=== PATIENT | female | born 1945 | race Caucasian/White ===

== ENCOUNTER 2020-09-10 09:09 | Emergency (ER) | payer MEDICARE, OTHER ==
[~2020-09-10] VITALS: Ht 162.6 cm; Wt 93.0 kg
[~2020-09-10 09:09] MED LIST: LIDODERM1 EACH TOP
[2020-09-10] MEDS ORDERED: AMLODIPINE BESYL5 MG PO (09:25)
[2020-09-10] MEDS ORDERED: OMEPRAZOLE20 MG PO (09:26)
[2020-09-10] MEDS ORDERED: DIVALPROEX SOD500 M1 PO (09:26)
[2020-09-10] MEDS ORDERED: PENNSAID112 GM TOP (09:26)
[2020-09-10] MEDS ORDERED: LOSARTAN POTASS50 MG PO (09:26)
[2020-09-10] MEDS ORDERED: OXYBUTYNIN CHLO15 MG PO (09:26)
--- NOTE | 2020-09-11 00:46 | EKG ---
[facility] [address] [facility] [place], [place] [address] Signed Normal sinus rhythm Normal ECG No previous ECGs available Confirmed by LARISA LOMAX MD ([id number]) on 09/11/2020 12:46:18 AM Electronically Signed By: LARISA LOMAX MD 09/11/20 0046 PATIENT NAME: MITCH GUTIERREZ Electrocardiogram DATE OF : 43 PHYSICIAN: LARISA LOMAX MD REPORT #: [id number] REPORT IS CONFIDENTIAL AND NOT TO BE RELEASED WITHOUT AUTHORIZATION
== END 2020-09-10 13:55 | disposition home or self-care (01) ==
LOC: ED 09:09
DX: U07.1 COVID-19 (principal); I95.9 Hypotension, unspecified; I10 Essential (primary) hypertension; Z87.891 Personal history of nicotine dependence; Z79.899 Other long term (current) drug therapy
CPT/HCPCS: 71045; 80053; 81001; 84484; 85007; 85025; 93005; 93010; 99284-25; C9803; J7121; U0003

== ENCOUNTER 2020-12-24 10:40 | Emergency (ER) | payer MEDICARE, OTHER ==
[~2020-12-24] VITALS: Ht 162.6 cm; Wt 95.2 kg
[~2020-12-24 10:40] MED LIST changes: +AMLODIPINE BESYL5 MG PO; +CELEXA20 MG PO; +CEREFOLIN TABL1 EACH PO; +CLARITIN10 M2 PO; +DIVALPROEX SOD500 M1 PO; +FOSAMAX70 MG PO; +K-TAB ER20 MEQ PO; +LOSARTAN POTASS50 MG PO; +MAGNESIUM-VIT1 EAC1 PO; +OMEPRAZOLE20 MG PO; +ONDANSETRON ODT8 MG PO; +OSTEOBLOX CF C1 EACH PO; +OXYBUTYNIN CHLO15 MG PO; +PENNSAID112 GM TOP; +PENNSAID2 GM; +PEPCID40 MG PO; +STOOL SOFTENER1 EAC2 PO; +ZYPREXA2.5 MG PO
[2020-12-24] MEDS ORDERED: ROPINIROLE HC0.25 MG PO (11:15)
== END 2020-12-24 12:30 | disposition home or self-care (01) ==
LOC: ED 10:40
DX: I10 Essential (primary) hypertension (principal); K30 Functional dyspepsia; Z87.891 Personal history of nicotine dependence; Z88.8 Allergy status to other drugs, medicaments and biological substances; Z79.899 Other long term (current) drug therapy
CPT/HCPCS: 99283

== ENCOUNTER 2022-01-25 06:31 | Emergency (ER) | payer MEDICARE, OTHER ==
[~2022-01-25] VITALS: Ht 162.6 cm; Wt 95.2 kg
[~2022-01-25 06:31] MED LIST changes: +ROPINIROLE HC0.25 MG PO
== END 2022-01-25 09:44 | disposition home or self-care (01) ==
LOC: ED 06:31
DX: J10.1 Influenza due to other identified influenza virus with other respiratory manifestations (principal); I10 Essential (primary) hypertension; G20 Parkinson's disease; Z87.891 Personal history of nicotine dependence; Z79.899 Other long term (current) drug therapy; Z20.822 Contact with and (suspected) exposure to COVID-19
CPT/HCPCS: 36415; 71045; 80053; 83880; 85025; 87502; 94640; J2930; U0003

== ENCOUNTER 2022-03-24 05:40 | Day surgery (SDC) | payer MEDICARE, OTHER ==
[~2022-03-24] VITALS: Ht 162.6 cm; Wt 85.4 kg
--- NOTE | ~2022-03-24 | OR ---
[facility] [address] [place], [place] [address] Draft DATE OF OPERATION: 03/24/2022 SURGEON: Monae Machado MD PREOPERATIVE DIAGNOSIS: Positive Cologuard test, October 30, 2021. POSTOPERATIVE DIAGNOSES: 1. Polyps x2, cecum and right colon. 2. Profound diverticulosis. PROCEDURE: Total colonoscopy to cecum with cold snare polypectomy x1 and cold morcellation polypectomy x1. ANESTHESIA: Intravenous sedation propofol infusion, Carlton Klein CRNA INDICATIONS: This 76-year-old white woman is a patient of Dr. Bustamante. She moved to [place] from [place] about four years ago. She has undergone colonoscopy greater than 20 years ago. Due to her numerous comorbidities including Parkinson disease wheelchair confined and other issues including obesity. She underwent a Cologuard test. Cologuard test was positive. This was in October 2021. She is here now for colonoscopy. Understands the risks of bleeding, infection, and perforation. FINDINGS: The prep was adequate but not great. Numerous diverticula were seen in the sigmoid and throughout the colon generally speaking. She did have melanosis coli as well. Found with two polyps, one about 1 cm in the mid ascending colon, the other a small polyp of the cecum. Both were excised completely. Biopsies taken of the cecum to affirm melanosis coli also. PROCEDURE IN DETAIL: Patient was brought to the surgical endoscopy suite and placed in lateral decubitus position given intravenous sedation with propofol infusional technique. The patient's head was placed in the lateral decubitus position. Digital rectal examination was normal. An Olympus video colonoscope was passed in the rectum and manipulated into the sigmoid PATIENT NAME: MITCH GUTIERREZ OPERATIVE REPORT DATE OF : 43 REPORT #: [id number] PHYSICIAN: MONAE MACHADO MD PCP: JASMINE BUSTAMANTE MD REPORT IS CONFIDENTIAL AND NOT TO BE RELEASED WITHOUT AUTHORIZATION [facility] [address] [place], [place] [address] Draft which had profound diverticular changes. Passage of the scope was not particularly impeded by diverticula but she did have a redundant colon and given her underlying issues, a fair amount of straining. Deep sedation resulted in some desaturations and on that basis a less dense sedation protocol was required. Scope was ultimately manipulated to the cecum despite these factors. Irrigation was undertaken and melanosis coli was confirmed. Biopsy was taken of the cecum to affirm that histologically. A small polyp that was adenomatous was seen in the cecum was excised with cold morcellation technique. The scope was further withdrawn in the mid ascending colon, a somewhat sessile 1 cm polyp was noted, this was excised with cold snare technique. Specimen was passed for pathology as well. Further withdrawal of scope showed no evidence of other polyps, only diverticular changes. The rectum was normal on retroflexed view as well. The scope was removed. The patient taken to the recovery room in good condition. CONCLUDING DIAGNOSES: 1. Polyps x2 affirming positive Cologuard test. 2. Melanosis coli. 3. Profound diverticulosis. PLAN: I would recommend repeat colonoscopy in 5-7 years, sooner if clinically indicated. High-fiber diet would be recommended based on her diverticulosis. MD GOMEZ [place]/MODL /[id number] cc: Dr. Bustamante Copies: ~ PATIENT NAME: MITCH GUTIERREZ OPERATIVE REPORT DATE OF : 43 REPORT #: [id number] PHYSICIAN: MONAE MACHADO MD PCP: JASMINE BUSTAMANTE MD REPORT IS CONFIDENTIAL AND NOT TO BE RELEASED WITHOUT AUTHORIZATION
[~2022-03-24 05:40] MED LIST changes: +ADULT ASPIRIN R81 MG PO; +LIPITOR10 MG GT; +LIPITOR20 MG GT; +VITAMIN B-121000 MCG PO
[2022-03-24] MEDS ORDERED: BUSPIRONE HCL5 MG PO (06:27)
[2022-03-24] MEDS ORDERED: BIOTIN1 M1 PO (06:31)
--- NOTE | 2022-03-24 09:31 | NUR ---
03/24/22 0931 Tigist Flynn 0976 PATIENT ARRIVES TO PACU AWAKE. ASKING/ANSWERING QUESTIONS APPROPRIATELY. RESP EVEN AND UNLABORED, ROOM AIR SATS >94%. PATIENT C/O ABD CRAMPING, ENCOURAGED TO PASS GAS. DENIES NAUSEA.
--- NOTE | 2022-03-24 10:19 | NUR ---
1005: PT TO DS RM 9 VIA STRETCHER AWAKE AND ALERT. PT WOULD LIKE THIS RN TO CALL [facility] AT 1030. PT PROVIDED ICED WATER WITH CALL LIGHT IN REACH.
--- NOTE | 2022-03-24 10:34 | NUR ---
PT ALERT, ORIENTED AND HERE FOR SCOPE. PT HAS HAD NUMEROUS SCOPES PREVIOUS. PT COMFORTABLE, SAID SHE WISHED SHE HADN'T DRANK ENSURE DURING PREP. PT HAS RIDE HOME FOLLOWING DC ARRANGED. PT DECLINED PRAYER, WILL FOLLOW
--- NOTE | 2022-03-24 11:29 | NUR ---
[id number]: [facility] CALLED WHO STATE THEY WILL BE TO HOSPITAL WITHIN 30 MINUTES. PT UP TO BATHROOM WITH RN ASSIST AND USE OF PERSONAL ELECTRIC WHEELCHAIR. PT BACK TO DS RM 9 AND DRESSES SELF. THIS RN GIVEN WRITTEN AND VERBAL DC INSTRUCTIONS. [id number]: [facility] ARRIVES AND PT DC FROM DS RM 9 VIA PERSONAL WC WITH RN ASSIST TO ASSISTED LIVING.
--- NOTE | 2022-03-25 14:57 | PATH ---
[facility] [address] [facility] [place] [address] Signed SPECIMEN(S): A CECUM POLYP SPECIMEN(S): B ASCENDING/RIGHT COLON POLYP SPECIMEN SOURCE: A. CECUM POLYP B. ASCENDING/RIGHT COLON POLYP CLINICAL HISTORY: Pre: Positive Cologuard. Post: Polyps x 2, diverticulosis. FINAL PATHOLOGIC DIAGNOSIS: A. Cecum polyp: - Tubular adenoma (two fragments). B. Ascending / right colon polyp: - Tubular adenoma (three fragments). JVR:[facility]:C2NR MICROSCOPIC EXAMINATION: Histologic sections of all submitted blocks are examined by light microscopy. These findings, together with the gross examination, support the pathologic diagnosis. GROSS DESCRIPTION: A. The specimen, labeled and designated "Tg, cecum polyp," is received in formalin and consists of two mercedes soft tissue fragments, ranging from 0.2-0.3 cm. Entirely submitted in (A1). B. The specimen, labeled and designated "Tg, ascending/right colon polyp," is received in formalin and consists of three mercedes soft tissue fragments, ranging from 0.2-0.4 cm. Entirely submitted in (B1). VB (under the direct supervision of a pathologist) The Gross Description was prepared using a voice recognition system. The report was reviewed for accuracy; however, sound-alike word errors, addition and/or deletions may occur. If there is any question about this report, please contact Client Services. PERFORMING LABORATORY: The technical component was performed by [facility], [address] [place] [id number] (CLIA# [id number]). Professional interpretation was performed by [facility], [address] [place] [address], [place] [address] (CLIA#: [id number]). PATIENT NAME: MITCH GUTIERREZ PATHOLOGY DATE OF : 43 REPORT #: [id number] PHYSICIAN: [facility] PCP: JASMINE EUBANKS MD REPORT IS CONFIDENTIAL AND NOT TO BE RELEASED WITHOUT AUTHORIZATION [address] [place] [address] Signed Diagnostician: Miki Farley MD Pathologist Electronically Signed 03/25/2022 Copies: ~ PATIENT NAME: MITCH GUTIERREZ PATHOLOGY DATE OF : 43 REPORT #: [id number] PHYSICIAN: [facility] PCP: JASMINE EUBANKS MD REPORT IS CONFIDENTIAL AND NOT TO BE RELEASED WITHOUT AUTHORIZATION
== END 2022-03-24 11:05 | disposition home or self-care (01) ==
LOC: OPS 05:40 → DS 05:40 → OPS 07:30 → DS 07:30 → OPS 11:05
PROVIDERS: ATTEND Surgery
PROC: 0DBH8ZZ Excision of Cecum, Via Natural or Artificial Opening Endoscopic (ICD-10-PCS; 2022-03-24)
PROC: 0DBK8ZZ Excision of Ascending Colon, Via Natural or Artificial Opening Endoscopic (ICD-10-PCS; principal; 2022-03-24 07:30)
DX: D12.2 Benign neoplasm of ascending colon (principal); D12.0 Benign neoplasm of cecum; K57.30 Diverticulosis of large intestine without perforation or abscess without bleeding; K63.89 Other specified diseases of intestine
CPT/HCPCS: J2704; J7121

== ENCOUNTER 2022-10-02 06:18 | Day surgery (SDC) | payer MEDICARE, OTHER ==
[2022-09-29 14:12] VITALS: BP 150/79
[~2022-10-02] VITALS: Ht 162.6 cm; Wt 82.7 kg
[~2022-10-02 06:18] MED LIST changes: +BIOTIN1 M1 PO; +BUSPIRONE HCL5 MG PO; +MAGNESIUM400 MG PO
[2022-10-02 06:38] VITALS: BP 179/68
[2022-10-02] MEDS ORDERED: CALCIUM CARBON600 M1 PO (06:46)
[2022-10-02] MEDS ORDERED: TRAMADOL HCL50 MG PO (08:05)
[2022-10-02 08:43] VITALS: BP 159/76
--- NOTE | 2022-10-02 09:08 | OR ---
[facility] [address] [place], [place] [address] Signed DATE OF OPERATION: 10/02/2022 SURGEON: Michelle Baer MD PREOPERATIVE DIAGNOSIS: Carpal tunnel syndrome, left. POSTOPERATIVE DIAGNOSIS: Carpal tunnel syndrome, left. PROCEDURE PERFORMED: Left carpal tunnel release. RECRUITMENT CONSULTANT: None. ANESTHESIA: Raul block. TOURNIQUET TIME: 17 minutes. BRIEF HISTORY: Sonia is a 77-year-old female with progressive worsening of carpal tunnel in both wrist, left is worse than the right. Risks, benefits, and alternatives of surgery were discussed with her. She elected to proceed. DESCRIPTION OF PROCEDURE: Once consent was obtained, she was taken to the operating room. After adequate anesthesia, she was left on day surgery cart and the hand table was brought in. The arm was prepped and draped in the standard sterile fashion. A 1.5 cm incision was made in the distal wrist crease, carried through the skin and subcutaneous tissue. The palmaris longus was identified, retracted, and protected. The transverse carpal ligament was identified and dissected free of overlying soft tissue. It was then released proximally a cm and distally to the distal extent of the ligament under direct loupe magnification. This was then palpated using a [place] and found to be completely released. The wound was copiously irrigated with normal saline, closed with 3-0 nylon and injected with 7 mL of 0.25% Marcaine. The wound was then dressed with bacitracin, Adaptic, 4 x 8s, and gauze. She tolerated the procedure well. All sponge, needle, and instrument counts were Electronically Signed By: MICHELLE BAER MD 10/02/22 0908 PATIENT NAME: SONIA GUTIERREZ OPERATIVE REPORT DATE OF : 43 REPORT #: [id number] PHYSICIAN: MICHELLE BAER MD PCP: JASMINE EUBANKS MD REPORT IS CONFIDENTIAL AND NOT TO BE RELEASED WITHOUT AUTHORIZATION [address] [place], [place] [address] Signed correct.. Michelle Baer MD BA/MODL /[id number] Copies: ~ Electronically Signed By: MICHELLE BAER MD 10/02/22 0908 PATIENT NAME: SONIA GUTIERREZ OPERATIVE REPORT DATE OF : 43 REPORT #: [id number] PHYSICIAN: MICHELLE BAER MD PCP: JASMINE EUBANKS MD REPORT IS CONFIDENTIAL AND NOT TO BE RELEASED WITHOUT AUTHORIZATION
--- NOTE | 2022-10-02 09:56 | NUR ---
10/02/22 0956 Dejan,Sayra 0806 PT ARRIVED TO PACU ON RA AND RESP EVEN AND UNLABORED. PT AWAKE AND TALKING TO RN. "I AM LOOPY, I WAS PICKING BLACKBERRIES." PT DENIES PAIN AND REPORTS HAND IS VERY NUMB, PT UNABLE TO MOVE FINGERS. 0830 PLAN OF CARE DISCUSSED. PT CONTINUES TO DENY PAIN AND NAUSEA 0843 RIDE CALLED, [facility]. DC INSTRUCTIONS GIVEN AND ICE IN PLACE. 0855 RN HELPS PT GET DRESSED, PT HAS HER OWN WC AND PT SLIGHTLY UNSTABLE ON HER FEET BY EASILY GETS TO HER WC. PT DC WITH PAPERWORK AND VERBALIZED UNDERSTANDING OF RX AT PHARMACY. SLING PLACED AND EDUCATION GIVEN. PT DENIES QUESTIONS AND DC TO TRANSPORT WITH ALL BELONGINGS.
== END 2022-10-02 08:55 | disposition home or self-care (01) ==
LOC: DS 06:18
PROVIDERS: ATTEND Specialist
PROC: 01N50ZZ Release Median Nerve, Open Approach (ICD-10-PCS; principal; 2022-10-02 08:00)
DX: G56.03 Carpal tunnel syndrome, bilateral upper limbs (principal); I10 Essential (primary) hypertension; F31.9 Bipolar disorder, unspecified; G20 Parkinson's disease
CPT/HCPCS: 01810; J0690; J2704; J3010; J3490; J7121

== ENCOUNTER 2023-06-04 05:48 | Day surgery (SDC) | payer MEDICARE, OTHER ==
[~2023-06-04] VITALS: Ht 162.6 cm; Wt 87.3 kg
[~2023-06-04 05:48] MED LIST changes: +CALCIUM CARBON600 M1 PO; +LACTATED RINGER'S 1,000 ML IV SCH; +TRAMADOL HCL50 MG PO
[2023-06-04 06:03] VITALS: BP 154/42
[2023-06-04] MEDS ORDERED: propofoL 200 MG/20 ML VIAL ONE (06:52)
[2023-06-04] MEDS ORDERED: LIDOCAINE HCL 0.5% 50 ML SDV ONE (06:52)
[2023-06-04] MEDS ORDERED: LIDOCAINE HCL 1% 5 ML SDV INJ ONE (07:00)
[2023-06-04] MEDS ORDERED: CEFAZOLIN SODIUM 2 GM/20 ML SYR IV SCH (07:00)
[2023-06-04] MEDS ORDERED: NALOXONE HCL 0.4 MG SYR IV PRN (07:00)
[2023-06-04] MEDS ORDERED: IBLOOD GLUCOSE TEST STRIP 1 EA TEST VI PRN (07:00)
[2023-06-04] MEDS ORDERED: HYDROCODONE/ACETA 5/325 TAB PO PRN (07:00)
[2023-06-04] MEDS ORDERED: HYDROCODON-ACE1 EA10 PO (07:22)
[2023-06-04 07:57] VITALS: BP 110/72
--- NOTE | 2023-06-04 08:32 | NUR ---
06/04/23 0832 Sayra Wylie 0720 PT ARRIVED TO PACU ON RA, PT AWAKE AND TALKING TO RN. PT DENIES CONCERNS. 0726 MD AT BEDSIDE TALKING TO PT. 0735 PT REPORTS THE NEED TO USE THE RESTROOM. 0740 PT UP TO BATHROOM WITH HER OWN WHEELCHAIR, PT REPORTS SOME DIZZINESS WITH STANDING. PT REPORTS HAVING A BOWEL MOVEMENT. 0750 PT BACK TO BED AND TREE TRIMMING SUPERVISOR HELPS PT GET DRESSED WITH RN AT BEDSIDE. 0800 DC INSTRUCITONS GIVEN WITH VERBALIZED UNDERSTANDING OF RX AT PHARMACY. 0803 PT DC WITH PAPERWORK AND ALL BELONGINGS. ALL QUESTIONS ANSWERED. PT REFUSED THE USE OF SLING AND PT USING HAND WITH NO PROBLEMS.
--- NOTE | 2023-06-05 08:43 | OR ---
[facility] [address] [place], [place] [address] Signed DATE OF OPERATION: 06/04/2023 SURGEON: Michelle Baer MD PREOPERATIVE DIAGNOSIS: Carpal tunnel syndrome, right. POSTOPERATIVE DIAGNOSIS: Carpal tunnel syndrome, right. PROCEDURE PERFORMED: Right carpal tunnel release. PSYCHIATRY TEACHER: None. ANESTHESIA: Raul block. TOURNIQUET TIME: 20 minutes. BRIEF HISTORY: Sonia is a 77-year-old female with progressive worsening numbness and tingling as well as positive nerve conduction studies. Risks and benefits of operative treatment were discussed with her and she elected to proceed. Once consent was obtained, she was taken to the operating room. After adequate anesthesia, she was left on the day surgery bed and hand table was brought in. The arm was prepped and draped in a standard sterile fashion after establishment of [place] block. The carpal tunnel was approached through a transverse 1.5 cm incision in the distal wrist crease, carried through skin and subcutaneous tissue. Under direct loupe magnification, the soft tissue was dissected free of the transverse carpal ligament and retracted. The ligament was then directly released using tenotomy scissors proximally a centimeter and distally to the distal extent. This was done under direct visualization and palpated using a Schwertner and found to be completely released. The wound was copiously irrigated with normal saline and closed with 3-0 nylon. The wound was injected with 6 mL of 0.25% plain Marcaine. The wound was then dressed with bacitracin Adaptic 4 x 8 and gauze. She tolerated the procedure well. All sponge, needle, and instrument counts were correct. Electronically Signed By: MICHELLE BAER MD 06/05/23 0843 PATIENT NAME: SONIA GUTIERREZ OPERATIVE REPORT DATE OF : 43 REPORT #: [id number] PHYSICIAN: MICHELLE BAER MD PCP: JASMINE EUBANKS MD REPORT IS CONFIDENTIAL AND NOT TO BE RELEASED WITHOUT AUTHORIZATION [address] [place] [address] Signed Michelle Baer MD BA/MODL /[id number] Copies: ~ Electronically Signed By: MICHELLE BAER MD 06/05/23 0843 PATIENT NAME: SONIA GUTIERREZ OPERATIVE REPORT DATE OF : 43 REPORT #: [id number] PHYSICIAN: MICHELLE BAER MD PCP: JAMSINE EUBANKS MD REPORT IS CONFIDENTIAL AND NOT TO BE RELEASED WITHOUT AUTHORIZATION
[2023-06-07] MEDS ORDERED: KETOROLAC TROME10 MG PO (19:20)
== END 2023-06-04 08:03 | disposition home or self-care (01) ==
LOC: OPS 05:48 → DS 05:48 → OPS 07:00
PROVIDERS: ATTEND Specialist
PROC: 01N50ZZ Release Median Nerve, Open Approach (ICD-10-PCS; principal; 2023-06-04 07:00)
DX: G56.01 Carpal tunnel syndrome, right upper limb (principal); F31.9 Bipolar disorder, unspecified; I10 Essential (primary) hypertension; K21.9 Gastro-esophageal reflux disease without esophagitis
CPT/HCPCS: J0690; J2704

== ENCOUNTER 2023-06-24 11:14 | Emergency (ER) | payer MEDICARE, OTHER ==
[~2023-06-24] VITALS: Ht 162.6 cm; Wt 90.0 kg
[~2023-06-24 11:14] MED LIST changes: +HYDROCODON-ACE1 EA10 PO; +KETOROLAC TROME10 MG PO; -LACTATED RINGER'S 1,000 ML IV SCH
[2023-06-24] MEDS ORDERED: TRAMADOL HCL 50 MG TAB PO ONE (12:00)
[2023-06-24 12:43] VITALS: BP 183/86
== END 2023-06-24 12:38 | disposition home or self-care (01) ==
LOC: ED 11:14
DX: S80.11XA Contusion of right lower leg, initial encounter (principal); I10 Essential (primary) hypertension; Z87.891 Personal history of nicotine dependence; Z88.8 Allergy status to other drugs, medicaments and biological substances; Z79.899 Other long term (current) drug therapy; W22.8XXA Striking against or struck by other objects, initial encounter
CPT/HCPCS: 99283

== ENCOUNTER 2023-11-03 14:09 | Emergency (ER) | payer MEDICARE, OTHER ==
[~2023-11-03] VITALS: Ht 162.6 cm; Wt 92.4 kg
[~2023-11-03 14:09] MED LIST changes: +DERMACINRX FOL1 EAC1 PO; +DIPHENHYDRAMINE50 M1 PO; +FLUOROURACIL40 GM TOP; +FLUOXETINE HCL10 MG PO; +FOLIC ACID1 MG PO; +ONDANSETRON HCL4 MG PO; +THIAMINE HCL500 MG PO
[2023-11-03 14:23] LABS: HEMATOCRIT 34.9 % (35.0-50.0); HEMOGLOBIN 11.3 g/dL (12.0-18.0); MCH 28.8 (27-36); MCHC 32.3 g/dl (30-36); MCV 89.4 fl (81-99); PLATELET COUNT 311 K/uL (140-440); RBC 3.91 M/ul (4.3-5.7); RDW 15.7 (10.5-15.0)
[2023-11-03] MEDS ORDERED: TRAMADOL HCL50 MG PO (14:26)
[2023-11-03] MEDS ORDERED: TUMS200 MG PO (14:26)
[2023-11-03] MEDS ORDERED: MIRALAX17 GM PO (14:26)
[2023-11-03] MEDS ORDERED: PROZAC10 MG PO (14:27)
[2023-11-03] MEDS ORDERED: LORazepam 1 MG TAB PO ONE (14:30)
[2023-11-03 14:41] LABS: ALBUMIN 3.2 g/dL (3.4-5.0); ALBUMIN/GLOBULIN RATIO 0.97 (1.1-2.4); ANION GAP 12.1 (7-21); BILIRUBIN, TOTAL 0.5 ng/dL (0.2-1.0); BUN/CREATININE RATIO 15.27 (6.0-28.6); CREATININE, SERUM 0.72 mg/dL (0.55-1.02); POTASSIUM 4.1 mmol/L (3.5-5.1); PROTEIN, TOTAL 6.5 g/dL (6.4-8.2)
[2023-11-03 14:47] LABS: BANDS, MANUAL DIFF 2; BASOPHILS, MANUAL DIFF 1; EOSINOPHILS, MANUAL DIFF 1; LYMPHOCYTES, MANUAL DIFF 11; MONOCYTES, MANUAL DIFF 7; NEUTROPHILS, MANUAL DIFF 78
[2023-11-03] MEDS ORDERED: HYDROXYZINE HCL25 MG PO ×2 (15:04→15:28)
[2023-11-03 15:16] VITALS: BP 147/78
--- NOTE | 2023-11-03 22:12 | EKG ---
[facility] [address] [place] [address] [address] Signed Normal sinus rhythm Septal infarct , age undetermined Abnormal ECG When compared with ECG of 29-SEP-2022 14:17, Septal infarct is now present Confirmed by Nica Oliveira MD () on 11/03/2023 10:11:47 PM Electronically Signed By: NICA OLIVEIRA MD 11/03/23 221 PATIENT NAME: MITCH GUTIERREZ Electrocardiogram DATE OF : 43 PHYSICIAN: NICA OLIVEIRA MD REPORT #: [id number] REPORT IS CONFIDENTIAL AND NOT TO BE RELEASED WITHOUT AUTHORIZATION
== END 2023-11-03 15:25 | disposition home or self-care (01) ==
LOC: ED 14:09
PROVIDERS: Emergency Medicine
DX: F41.9 Anxiety disorder, unspecified (principal); I10 Essential (primary) hypertension; G20.A1 Parkinson's disease without dyskinesia, without mention of fluctuations; Z87.891 Personal history of nicotine dependence; Z88.8 Allergy status to other drugs, medicaments and biological substances; Z79.899 Other long term (current) drug therapy; Z79.82 Long term (current) use of aspirin
CPT/HCPCS: 36415; 80053; 84484; 85025; 93005; 93010; 99284; A9270-GY

== ENCOUNTER 2024-03-05 17:36 | Emergency (ER) | payer MEDICARE, OTHER ==
[~2024-03-05] VITALS: Ht 162.6 cm; Wt 96.2 kg
[~2024-03-05 17:36] MED LIST changes: +CITALOPRAM HBR10 MG PO; +HYDROXYZINE HCL25 MG PO; +MIRALAX17 GM PO; +PROZAC10 MG PO; +TUMS200 MG PO; +VITAMIN B650 MG PO
[2024-03-05] MEDS ORDERED: BUSPIRONE HCL5 MG PO (17:49)
[2024-03-05] MEDS ORDERED: FLUOXETINE HCL10 M1 PO (17:49)
[2024-03-05] MEDS ORDERED: LEVOFLOXACIN500 MG PO (17:50)
[2024-03-05 18:48] LABS: BILIRUBIN, URINE NEGATIVE (negative); BLOOD/HGB, URINE NEGATIVE (Negative); KETONE, URINE NEGATIVE (Negative); LEUK ESTERASE, URINE NEGATIVE (negative); NITRITE, URINE NEGATIVE (negative)
[2024-03-05 20:23] VITALS: BP 97/51
== END 2024-03-05 20:23 | disposition home or self-care (01) ==
LOC: ED 17:36
PROVIDERS: Internal Medicine
DX: N30.90 Cystitis, unspecified without hematuria (principal); I10 Essential (primary) hypertension; G20.A1 Parkinson's disease without dyskinesia, without mention of fluctuations; M81.0 Age-related osteoporosis without current pathological fracture; K21.9 Gastro-esophageal reflux disease without esophagitis; Z87.891 Personal history of nicotine dependence; Z88.8 Allergy status to other drugs, medicaments and biological substances; Z79.83 Long term (current) use of bisphosphonates; Z79.899 Other long term (current) drug therapy
CPT/HCPCS: 51798; 81003; 99283-25

== ENCOUNTER 2024-05-05 00:44 | Emergency (ER) | payer MEDICARE, OTHER ==
[~2024-05-05] VITALS: Ht 162.6 cm; Wt 88.0 kg
[~2024-05-05 00:44] MED LIST changes: +FLUOXETINE HCL10 M1 PO; +LEVOFLOXACIN500 MG PO
[2024-05-05 01:59] LABS: BASOPHILS 1.7 % (0-2); EOSINOPHILS 0.5 % (0-6); HEMATOCRIT 32.1 % (35.0-50.0); HEMOGLOBIN 10.7 g/dL (12.0-18.0); MCH 28.5 (27-36); MCHC 33.3 g/dl (30-36); MCV 85.5 fl (81-99); MONOCYTES 10.9 % (0-12); NEUTROPHILS 74.9 % (39-80); PLATELET COUNT 322 K/uL (140-440); RBC 3.75 M/ul (4.3-5.7); RDW 17.5 (10.5-15.0)
[2024-05-05 02:17] LABS: ALBUMIN 3.3 g/dL (3.4-5.0); ALBUMIN/GLOBULIN RATIO 1.06 (1.1-2.4); ANION GAP 10.4 (7-21); BILIRUBIN, TOTAL 0.7 mg/dL (0.2-1.0); BUN/CREATININE RATIO 10.81 (6.0-28.6); CALCIUM 9.9 mg/dL (8.5-10.1); CREATININE, SERUM 0.74 mg/dL (0.55-1.02); MAGNESIUM 1.4 mg/dL (1.8-2.4); POTASSIUM 4.4 mmol/L (3.5-5.1); PROTEIN, TOTAL 6.4 g/dL (6.4-8.2)
[2024-05-05] MEDS ORDERED: FLUTICASONE PROPIONATE 50 MCG BTL NAS ONE (02:45)
[2024-05-05] MEDS ORDERED: DEXAMETHASONE SOD PHOS 10 MG/ML VIAL IV ONE (02:45)
[2024-05-05] MEDS ORDERED: FLONASE ALLERG9.9 ML NAS (03:15)
[2024-05-05] MEDS ORDERED: METHYLPREDNISOLO4 M1 PO (03:17)
[2024-05-05] MEDS ORDERED: MAGNESIUM OXIDE 400 MG TABLET PO ONE (04:00)
[2024-05-05] MEDS ORDERED: diphenhydrAMINE HCL 50 MG CAP PO ONE (04:00)
[2024-05-05 04:12] VITALS: BP 166/55
== END 2024-05-05 07:24 | disposition home or self-care (01) ==
LOC: ED 00:44
PROVIDERS: Internal Medicine
DX: J20.9 Acute bronchitis, unspecified (principal); R09.82 Postnasal drip; I10 Essential (primary) hypertension; K21.9 Gastro-esophageal reflux disease without esophagitis; Z79.82 Long term (current) use of aspirin; Z79.899 Other long term (current) drug therapy; Z88.8 Allergy status to other drugs, medicaments and biological substances; Z87.891 Personal history of nicotine dependence
CPT/HCPCS: 36415; 71045; 80053; 83735; 84484; 85025; 85060; 96374; 99285-25; J1100; Q0163

== ENCOUNTER 2024-08-02 03:09 | Emergency (ER) | payer MEDICARE, OTHER ==
[~2024-08-02] VITALS: Ht 162.6 cm; Wt 83.5 kg
[~2024-08-02 03:09] MED LIST changes: +FLONASE ALLERG9.9 ML NAS; -LIPITOR20 MG GT; +LIPITOR20 MG PO; +METHYLPREDNISOLO4 M1 PO; +OLANZAPINE2.5 MG PO; +VITAMIN D3250 MC2 PO
[2024-08-02] MEDS ORDERED: LIDOCAINE HCL 4% 1 EACH PATCH TD ONE (03:30)
[2024-08-02] MEDS ORDERED: CYCLOBENZAPRINE HCL 10 MG TAB PO ONE (03:30)
[2024-08-02] MEDS ORDERED: LIDODERM1 EACH TOP (04:35)
[2024-08-02] MEDS ORDERED: CYCLOBENZAPRINE10 MG PO (04:35)
[2024-08-02] MEDS ORDERED: CYCLOBENZAPRINE HCL 10 MG HOME.PACK PO ONE (04:45)
[2024-08-02] MEDS ORDERED: KETOROLAC TROMETHAMINE 30 MG/ML VIAL IM ONE (06:15)
[2024-08-02] MEDS ORDERED: MORPHINE SULFATE 10 MG/ML VIAL IM ONE (06:45)
[2024-08-02 07:15] VITALS: BP 187/68
== END 2024-08-02 07:35 | disposition home or self-care (01) ==
LOC: ED 03:09
DX: S29.012A Strain of muscle and tendon of back wall of thorax, initial encounter (principal); I10 Essential (primary) hypertension; K21.9 Gastro-esophageal reflux disease without esophagitis; Z90.49 Acquired absence of other specified parts of digestive tract; Z88.8 Allergy status to other drugs, medicaments and biological substances; Z79.899 Other long term (current) drug therapy; Z79.2 Long term (current) use of antibiotics; X58.XXXA Exposure to other specified factors, initial encounter
CPT/HCPCS: 72080; 96372; 99283; A9270; J1885; J2270

== ENCOUNTER 2024-12-17 15:09 | Emergency (ER) | payer MEDICARE, OTHER ==
[~2024-12-17] VITALS: Ht 162.6 cm; Wt 68.5 kg
[~2024-12-17 15:09] MED LIST changes: +CYCLOBENZAPRINE10 MG PO
[2024-12-17] MEDS ORDERED: MIRALAX119 GM PO (20:44)
[2024-12-17 23:55] LABS: BLOOD/HGB, URINE TRACE-I (Negative); KETONE, URINE TRACE (Negative); LEUK ESTERASE, URINE TRACE (negative); NITRITE, URINE NEGATIVE (negative)
[2024-12-18 00:08] LABS: BACTERIA, URINE 1+ /hpf (negative); CASTS, URINE NONE SEEN \\lpf; CRYSTALS, URINE NONE SEEN (0-1+); EPITHELIAL CELLS, URINE SQUAMOUS 3+ /lpf (0-1+); REFLEX CULTURE, URINE No (No)
[2024-12-18 00:25] LABS: BASOPHILS 0.5 % (0.1-1.2); EOSINOPHILS 0.2 % (0.7-5.8); LYMPHOCYTES 16.8 % (19.3-51.7); MCH 30.4 PG (25.6-32.2); MCHC 33.7 g/dL (32.2-35.5); MCV 90.2 fL (79.4-94.8); MONOCYTES 10.4 % (4.7-12.5); NEUTROPHILS 71.5 % (34.0-71.1); RBC 4.41 M/uL (3.93-5.22)
[2024-12-18 00:44] LABS: ALT (SGPT) 30.0 U/L (14-59); AST (SGOT) 30.0 U/L (15-37); GLOMERULAR FILTRATION RATE,EST 74.0 mL/min (>60); PROTEIN, TOTAL 7.1 g/dL (6.4-8.2); UREA NITROGEN 12.0 mg/dL (7-18)
[2024-12-18] MEDS ORDERED: LOSARTAN POTASSIUM 50 MG TAB PO ONE (02:45)
[2024-12-18 07:57] VITALS: BP 136/55
[2024-12-20] MEDS ORDERED: ZYPREXA20 MG PO (15:35)
[2024-12-20] MEDS ORDERED: ONDANSETRON ODT4 MG PO (15:36)
[2024-12-20] MEDS ORDERED: DIPHENHYDRAMINE50 M1 PO (15:37)
== END 2024-12-18 07:57 | disposition home or self-care (01) ==
LOC: ED 15:09
PROVIDERS: Emergency Medicine
DX: K59.00 Constipation, unspecified (principal); I10 Essential (primary) hypertension; K21.9 Gastro-esophageal reflux disease without esophagitis; Z79.82 Long term (current) use of aspirin; Z79.899 Other long term (current) drug therapy; Z88.8 Allergy status to other drugs, medicaments and biological substances; Z87.891 Personal history of nicotine dependence
CPT/HCPCS: 36415; 51798; 74177; 80053; 81001; 83690; 85025; 99284-25; Q9967